=== PATIENT | male | born 1995 | race Two or more races ===

== ENCOUNTER 2016-10-13 12:17 | Emergency (ER) | payer SELFPAY ==
[~2016-10-13] VITALS: Ht 167.6 cm; Wt 63.5 kg
[2016-10-13 12:39] VITALS: BP 105/47
== END 2016-10-13 14:22 | disposition home or self-care (01) ==
LOC: ER 12:20
DX: S01.112A Laceration without foreign body of left eyelid and periocular area, initial encounter (principal); W22.8XXA Striking against or struck by other objects, initial encounter; Y93.89 Activity, other specified; Y99.8 Other external cause status; Y92.89 Other specified places as the place of occurrence of the external cause
CPT/HCPCS: 12013

== ENCOUNTER 2016-10-22 10:11 | Emergency (ER) | payer SELFPAY ==
[~2016-10-22] VITALS: Ht 167.6 cm; Wt 62.1 kg
[2016-10-22 10:33] VITALS: BP 103/58
== END 2016-10-22 12:47 | disposition home or self-care (01) ==
LOC: ER 10:11
DX: S01.112D Laceration without foreign body of left eyelid and periocular area, subsequent encounter (principal); Z48.01 Encounter for change or removal of surgical wound dressing

== ENCOUNTER 2024-05-01 16:03 | Emergency (ER) | payer SELFPAY ==
[~2024-05-01] VITALS: Ht 167.6 cm; Wt 63.8 kg
[2024-05-01 16:34] VITALS: BP 115/68; PULSE 97; RESP 18; TEMP 98.9; O2SAT 97
[2024-05-01] MEDS ORDERED: AMOX500T86 PO (16:44)
[2024-05-01] MEDS: TETANUS-DIPTH-ACEL PERTUSSIS 0.5ML SYR Tdap IM ONE (17:00)
== END 2024-05-01 17:08 | disposition home or self-care (01) ==
LOC: ER 16:03
DX: S31.823A Puncture wound without foreign body of left buttock, initial encounter (principal); Z79.899 Other long term (current) drug therapy; W54.0XXA Bitten by dog, initial encounter; Y93.89 Activity, other specified; Y92.89 Other specified places as the place of occurrence of the external cause; Y99.8 Other external cause status
CPT/HCPCS: 90471; 90715